=== PATIENT | male | born 1940 | race Caucasian/White ===

== ENCOUNTER 2021-10-12 15:11 | Emergency (ER) | payer MEDICARE, SELFPAY ==
[2021-10-12 15:20] VITALS: BP 157/65; PULSE 105; RESP 24; TEMP 36.8; O2SAT 99
--- NOTE | 2021-10-12 15:44 | ECG_ITS ---
Measurements Intervals [place] Rate: 97 P: -5 [place]: 127 QRS: 24 QRSD: 126 T: 18 QT: 358 QTc: 455 Interpretive Statements SINUS RHYTHM RIGHT BUNDLE BRANCH BLOCK [120+ ms QRS DURATION, UPRIGHT V1, 40+ ms S IN I/aVL/V4/V5/V6] ABNORMAL ECG NO PREVIOUS ECG AVAILABLE FOR COMPARISON Electronically Signed On 10-13-2021 11:14:23 CDT by Otilio Mcknight M.D.
--- NOTE | 2021-10-12 15:46 | ED.GENADULT ---
HPI - General Adult General Chief complaint: Nausea/Vomiting/Diarrhea Stated complaint: Chest Congestion/Cough Time Seen by Provider: 10/12/21 15:46 Source: patient and RN notes reviewed Mode of arrival: ambulatory Limitations: other (hard of hearing) History of Present Illness HPI narrative: 81-year-old male with hx Lap Adriana 10/07/21 presented for complaint of intractable vomiting over the last 4 days. states he has not been able to keep anything down since surgery. Endorses intermittent chills and sweats. Patient has reported intermittent chest pressure described as someone sitting on his chest, rates 6 out of 10, which is what sent him to the ER at the time of the gallbladder surgery. contacted surgeon who recommended patient go to the ER for further evaluation. LBM today. History of CAD/PTCI. Related Data Home Medications Medication Instructions Recorded Confirmed aspirin [Baby Aspirin] 81 mg PO DAILY 10/12/21 10/12/21 cyanocobalamin (vitamin B-12) 1,000 mcg PO DAILY 10/12/21 10/12/21 ergocalciferol (vitamin D2) 1,250 mcg PO WEEKLY 10/12/21 10/12/21 [Vitamin D2] gabapentin 900 mg PO TID 10/12/21 10/12/21 latanoprost 1 drp EACH EYE DAILY 10/12/21 10/12/21 omeprazole 40 mg PO DAILY 10/12/21 10/12/21 rosuvastatin 5 mg PO DAILY 10/12/21 10/12/21 Allergies Allergy/AdvReac Type Severity Reaction Status Date / Time duloxetine Allergy Unknown Rash Verified 10/12/21 15:45 Review of Systems Review of Systems: CONSTITUTIONAL: reports sweats/ chills EYES: Denies visual changes ENT: Denies rhinorrhea, congestion CARDIOVASCULAR: reports chest pain,denies palpitations, or edema. RESPIRATORY: Denies cough or dyspnea. GASTROINTESTINAL: Endorses abdominal pain, nausea, vomiting, Denies diarrhea, hematochezia, melena, hematemesis GENITOURINARY: Denies dysuria, hematuria, or CVA tenderness. SKIN: Denies rash, itching, or wounds. MUSCULOSKELETAL: Denies back pain, joint pain, or myalgia. NEUROLOGIC: Denies headache, numbness, tingling, or weakness. PSYCH: Denies mood change All systems reviewed & are unremarkable except as noted in HPI and below PMFSH Comments At time of signature, I have reviewed and agree with nursing past medical, surgical, social and family history unless otherwise noted. Please see nursing chart for further information. There is no relevant family history pertinent to the presenting complaint Exam Narrative: GENERAL: ill appearing HEAD: Normocephalic, atraumatic. EYES: EOMI. Conjunctivae normal. ENT: VENETIE; Mucous membranes pink and moist. NECK: Normal AROM. Supple. CHEST: Labored at rest. No respiratory distress. Clear to auscultation. HEART: Regular rate and rhythm. No murmur appreciated. Normal peripheral pulses. ABDOMEN: Abd distension, periumbilical bruising surrounding surgical incision, puncture sites with steri strips intact, no drainage; No guarding, rebound tenderness, asymmetry; abd soft, diminished bowel sounds. Subcutaneous Pain pump to left lower abd. MUSCULOSKELETAL: No bony tenderness. EXTREMITIES: Normal range of motion. No edema. SKIN: Warm, dry, no rash. Capillary refill normal. NEURO: No focal deficits. Alert and oriented x3. Gait steady. PSYCH: Normal affect. Course Course Emergency Course: Patient is aware of diagnosis, understands and agrees to treatment plan. Portions of this record may have been created with voice recognition software Level of Care: Express Care Visit Vital Signs Vital signs: Vital Signs Temperature 98.2 F 10/12/21 15:20 Pulse Rate 105 H 10/12/21 15:20 Respiratory Rate 24 H 10/12/21 15:20 Blood Pressure 157/65 H 10/12/21 15:20 Pulse Oximetry 99 10/12/21 15:20 Temperature 98.2 F 10/12/21 15:20 Pulse Rate 105 H 10/12/21 15:20 Respiratory Rate 24 H 10/12/21 15:20 Blood Pressure 157/65 H 10/12/21 15:20 Pulse Oximetry 99 10/12/21 15:20 Transfer Transfered to: [facility] Transfer ration
== END 2021-10-12 16:10 | disposition short-term general hospital (02) ==
PROVIDERS: Emergency Provider Nurse Practitioner Family; PCP Internal Medicine
DX: R11.2 Nausea with vomiting, unspecified (principal); I45.10 Unspecified right bundle-branch block; E78.00 Pure hypercholesterolemia, unspecified; H40.9 Unspecified glaucoma; K21.9 Gastro-esophageal reflux disease without esophagitis; Z95.5 Presence of coronary angioplasty implant and graft; G62.9 Polyneuropathy, unspecified
CPT/HCPCS: 93005; 99215; G0463